=== PATIENT | male | born 1995 | race Caucasian/White ===

== ENCOUNTER 2020-08-15 22:46 | Observation (INO) | payer OTHER, SELFPAY ==
[~2020-08-15] VITALS: Ht 177.8 cm; Wt 83.9 kg
[2020-08-15] MEDS ORDERED: NALOXONE 0.4 MG/ML VIAL IVP ONE (22:55)
[2020-08-15 23:21] VITALS: BP 140/88
--- NOTE | 2020-08-15 23:21 | NUR ---
leyda from home for possible opioid OD and ETOH. pmhx: charisse verdugo
--- NOTE | 2020-08-15 23:25 | NUR ---
EMT PUT SEIZURE PADS IN PLACE.
--- NOTE | 2020-08-16 00:30 | NUR ---
PT'S GIRLFRIEND VANESSA BOWMAN CALLED. ASKED IF SHE KNEW WHAT HAPPENED AND WHAT THE PT MAY HAVE TAKEN. GIRLFRIEND STATED SHE WAS HOME WITH HIM BUT DOES NOT KNOW WHAT THE PT TOOK NOR HOW MUCH, STATED HE TAKES SEIZURE MEDICATION, UNABLE TO IDENTIFY KIND NOR AMOUNT. PHONE NUMBER .
[2020-08-16] MEDS ORDERED: NACL 0.9% 2,000 ML IV ONE (00:40)
--- NOTE | 2020-08-16 00:45 | NUR ---
RAD AT BEDSIDE.
[2020-08-16 00:52] LABS: BASOPHILS % (AUTO) 0.4 % (0.0-2.0); EOSINOPHILS % (AUTO) 0.4 % (0.0-4.0); HEMATOCRIT 50.3 % (36-52); HEMOGLOBIN 17.3 g/dL (12.0-18.0); LYMPHOCYTES # (AUTO) 2.2 K/uL (2.0-11.5); MEAN CORPUSCULAR HEMOGLOBIN 32 pg (27-31); MEAN CORPUSCULAR HGB CONC 34 g/dL (33-37); MEAN CORPUSCULAR VOLUME 91.6 fL (80-94); MONOCYTES # (AUTO) 0.4 K/uL (0.8-1.0); MONOCYTES % (AUTO) 5.5 % (1.7-9.3); NEUTROPHILS # (AUTO) 4.9 K/uL (1.8-7.7); NEUTROPHILS % (AUTO) 64.7 % (42.2-75.2); PLATELET COUNT (AUTO) 296 K/uL (140-450); RED CELL DISTRIBUTION WIDTH 13.3 % (11.6-13.7); WHITE BLOOD COUNT (AUTO) 7.6 K/uL (4.8-10.8)
[2020-08-16 01:10] LABS: ANION GAP 19.3 (8-16); CARBON DIOXIDE 21.5 mmol/L (21-32); CREATININE 1.1 mg/dL (0.6-1.3); POTASSIUM 3.8 mmol/L (3.5-5.1)
[2020-08-16 01:16] LABS: ALBUMIN 4.9 g/dL (3.4-5.0); TOTAL BILIRUBIN 0.4 mg/dL (0.0-1.0)
[2020-08-16 01:24] LABS: BARBITURATE, URINE NEGATIVE ng/ml (NEG <=200); BENZODIAZEPINE, URINE NEGATIVE ng/mL (NEG <=200); CANNABINOID, URINE POSITIVE ng/mL (NEG <=50); COCAINE, URINE POSITIVE ng/mL (NEG <=300); OPIATE, URINE POSITIVE ng/mL (NEG <=2000); PHENCYCLIDINE SCREEN,URINE NEGATIVE ng/mL (NEG <=25)
--- NOTE | 2020-08-16 01:30 | NUR ---
PT IN STABLE CONDITION. WITHDRAWS FROM PAINFUL STIMULI. EQUAL RISE AND FALL OF CHEST WALL. VS ARE STABLE. BED LOCKED IN LOWEST POSITION, SIDE RAILS X2.
--- NOTE | 2020-08-16 02:30 | NUR ---
SABRINA COLLECTED AND WALKED TO LAB.
[2020-08-16] MEDS ORDERED: NACL 0.9% 1,000 ML IV SCH (03:05)
[2020-08-16] MEDS ORDERED: ONDANSETRON 4 MG/2 ML VIAL IVP PRN (03:05)
[2020-08-16] MEDS ORDERED: ACETAMINOPHEN 325 MG TAB PO PRN (03:05)
[2020-08-16] MEDS ORDERED: NACL 0.9% 1,000 ML IV ONE (03:10)
--- NOTE | 2020-08-16 03:45 | NUR ---
PT AWAKE AND ALERT X1. REORIENTED TO TIME, PLACE, AND REASON. PT STATED HES HERE DUE TO HAVING NIGHTMARES, STATED HE TAKES KEPPRA. PT IS IN STABLE CONDITION. SIDE RAILS X2. BED LOCKED IN LOWEST POSITION.
--- NOTE | 2020-08-16 04:18 | NUR ---
PT IS SLEEPING. IN STABLE CONDITION, VITAL SIGNS ARE STABLE. EQUAL RISE AND FALL OF CHEST WALL. SEIZURE PADS MAINTAINED, FLUIDS CONTINUED. SIDE RAILS X2 AND BED IS LOCKED IN LOWEST POSITION.
--- NOTE | 2020-08-16 05:27 | NUR ---
PT IS SLEEPING IN STABLE CONDITION, EQUAL RISE AND FALL OF CHEST WALL. FLUIDS RUNNING ORDERED, SEIZURE PADS MAINTAINED. PT ON [employer] AND PULSE OX. ALL PT'T NEEDS MET AT THIS TIME.
--- NOTE | 2020-08-16 06:50 | NUR ---
PT IS SLEEPING. EQUAL RISE AND FALL OF CHEST WALL. PT IS IN STABLE CONDITION. SIDE RAILS X2, SEIZURE PADS IN PLACE, BED LOCKED IN LOWEST POSITION. FLUIDS CONTINUED ORDERED.
--- NOTE | 2020-08-16 07:20 | NUR ---
REPORT RECEIVED FROM CESAR ANGELO, TRANSFER OF CARE AT THIS TIME
--- NOTE | 2020-08-16 07:28 | NUR ---
REPORT GIVEN TO PETEY FUCHS. TRANSFER OF CARE AT THIS TIME.
--- NOTE | 2020-08-16 07:36 | NUR ---
PT RESTING WTIH EYES CLOSED, BREATHING EVEN AND UNLABORED. NO DISTRESS NOTED.
--- NOTE | 2020-08-16 08:19 | NUR ---
PT WOKE UP, STATES THAT HE TOOK HALF A XANAX. PT AOX4, BREATHING EVEN AND UNLABORED. STATES HE FEELS OKAY
--- NOTE | 2020-08-16 08:20 | NUR ---
DR GONZALEZ AT BEDSIDE
[2020-08-16] MEDS ORDERED: SERT-146 PO (08:29)
[2020-08-16] MEDS ORDERED: LEVE750T8 (08:29)
[2020-08-16] MEDS ORDERED: AMIT50TA27 (08:29)
[2020-08-16 08:36] VITALS: BP 109/58
[2020-08-16 09:00] VITALS: BP 109/58
[2020-08-16] MEDS ORDERED: ENOXAPARIN 40 MG/0.4 ML SYR SUBQ SCH (09:00)
--- NOTE | 2020-08-16 09:00 | NUR ---
Patient discharged with v/s stable. Written and verbal after care instructions given and explained. Patient verbalized understanding. Ambulatory with steady gait. All questions addressed prior to discharge. Advised to follow up with PMD.
== END 2020-08-16 09:00 | disposition home or self-care (01) ==
LOC: EDBD 22:46 → MED 22:46 → UNDOADMIN 08-16 03:07 → MTU 08-16 03:07
PROVIDERS: ADMIT Hospitalist; ATTEND Hospitalist
DX: G92 Toxic encephalopathy (principal); Z20.828 Contact with and (suspected) exposure to other viral communicable diseases; R41.82 Altered mental status, unspecified; F41.9 Anxiety disorder, unspecified; F32.9 Major depressive disorder, single episode, unspecified; F19.10 Other psychoactive substance abuse, uncomplicated; R74.01 Elevation of levels of liver transaminase levels; F10.129 Alcohol abuse with intoxication, unspecified; F14.129 Cocaine abuse with intoxication, unspecified; F11.129 Opioid abuse with intoxication, unspecified; F12.929 Cannabis use, unspecified with intoxication, unspecified; Z79.899 Other long term (current) drug therapy
CPT/HCPCS: 36415; 71045; 80053; 80305; 84484; 85025; 87426; 96361; 96374; 99291; G0378; G0482; J2310

== ENCOUNTER 2024-01-09 20:12 | Emergency (ER) | payer OTHER ==
[~2024-01-09] VITALS: Ht 185.4 cm; Wt 81.6 kg
[~2024-01-09 20:12] MED LIST: AMIT50TA27; LEVE750T8; SERT-515 PO
[2024-01-09 20:35] VITALS: BP 119/80; PULSE 109; RESP 20; TEMP 97.8; O2SAT 18
[2024-01-09 21:13] VITALS: O2SAT 99
[2024-01-09 21:51] LABS: BASOPHILS # (AUTO) 0.2 K/uL (0.00-0.22); BASOPHILS % (AUTO) 3.6 % (0.0-2.0); EOSINOPHILS # (AUTO) 0.1 K/uL (0-0.4); HEMOGLOBIN 16.9 g/dL (12.0-18.0); LYMPHOCYTES # (AUTO) 1.8 K/uL (2.0-11.5); LYMPHOCYTES % (AUTO) 28.2 % (20.5-51.1); MEAN CORPUSCULAR HEMOGLOBIN 33 pg (27-31); MEAN CORPUSCULAR HGB CONC 35 g/dL (33-37); MEAN CORPUSCULAR VOLUME 93.8 fL (80-94); MONOCYTES # (AUTO) 0.4 K/uL (0.8-1.0); MONOCYTES % (AUTO) 6.5 % (1.7-9.3); NEUTROPHILS # (AUTO) 3.7 K/uL (1.8-7.7); NEUTROPHILS % (AUTO) 59.7 % (42.2-75.2); PLATELET COUNT (AUTO) 347 K/uL (140-450); RED BLOOD CELL COUNT(AUTO) 5.12 MIL/uL (4.20-6.10); RED CELL DISTRIBUTION WIDTH 13.1 % (11.6-13.7); WHITE BLOOD COUNT (AUTO) 6.3 K/uL (4.8-10.8)
[2024-01-09 21:57] LABS: ANION GAP 13.4 (8-16); CALCIUM 8.9 mg/dL (8.5-10.1); CARBON DIOXIDE 27.5 mmol/L (21-32); CREATININE 0.8 mg/dL (0.6-1.3); POTASSIUM 3.9 mmol/L (3.5-5.1)
[2024-01-09 22:04] LABS: ALBUMIN 4.3 g/dL (3.4-5.0); BILIRUBIN,DIRECT 0.1 mg/dL (0.0-0.3); TOTAL BILIRUBIN 0.5 mg/dL (0.0-1.0); TOTAL PROTEIN, SERUM 7.2 g/dL (6.4-8.2)
[2024-01-09] MEDS: NACL 0.9% 1,000 ML IV ONE (22:29)
[2024-01-09 23:10] VITALS: O2SAT 99
[2024-01-09] MEDS: MORPHINE SULFATE 4 MG/ML SYR IVP ONE (23:50)
[2024-01-10 02:42] VITALS: O2SAT 97
[2024-01-10] MEDS ORDERED: METR-435 PO (04:50)
[2024-01-10 04:57] VITALS: BP 97/68; PULSE 78; RESP 18; TEMP 98; O2SAT 97
== END 2024-01-10 04:57 | disposition home or self-care (01) ==
LOC: MED 20:12
DX: K52.9 Noninfective gastroenteritis and colitis, unspecified (principal); K92.1 Melena; Z79.899 Other long term (current) drug therapy
CPT/HCPCS: 36415; 74176; 80048; 80076; 83690; 85025; 87040; 96361; 96374; 99285; J2270; J7030